=== PATIENT | male | born 1955 | race Caucasian/White ===

== ENCOUNTER 2016-10-02 13:45 | Outpatient (CLI) | payer OTHER ==
--- NOTE | 2016-10-02 15:25 | RAD ---
RIGHT KNEE TWO VIEWS: History: Right knee pain. FINDINGS: There is marked joint space loss at the medial compartment and prominent tricompartmental osteophyto sis. No acute fracture, dislocation, or fluid distention of the joint capsule are evident. IMPRESSION: Prominent osteoarthritic changes right knee with marked joint space loss at the medial compartment. POS: RICH
--- NOTE | 2016-10-02 15:29 | RAD ---
LUMBAR SPINE THREE VIEWS: History: Low back pain. FINDINGS: There are five lumbar type vertebrae. Pedicles are intact. Leftward convex rotatory scoliotic curvat ure is apparent on the frontal view. There is mild chronic vertebral body height loss involving the L1-L5 vertebral bodies. Disc space narrowing and minimal degenerative retrolisthesis is present at e ach level. There is bulky osteophytosis throughout the vertebral bodies and facets. Gas disc phenome non is apparent at the lower two levels. There is calcification in the arterial structures. IMPRESSION: 1. Prominent lumbar spondylosis. No acute osseous abnormalities are demonstrated. 2. Atherosclerosis. POS: RICH
== END 2016-10-02 13:46 | disposition home or self-care (01) ==
LOC: NAV RAD 13:45
PROVIDERS: ATTEND Family Medicine
DX: Z02.71 Encounter for disability determination (principal)
CPT/HCPCS: 72100